=== PATIENT | male | born 1965 | race Hispanic/Latino ===

== ENCOUNTER 2016-10-12 12:18 | Emergency (ER) | payer MEDICAID, OTHER ==
[2016-10-12 12:22] VITALS: RESP 18
[2016-10-12 12:28] VITALS: BMI 22.6
[2016-10-12 12:34] VITALS: O2SAT 97
[2016-10-12] MEDS ORDERED: Sodium Chloride 0.9% 1,000 ML IV ONE (13:22)
--- NOTE | 2016-10-12 13:26 | C.PDOC ---
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 Patient has multiple prior visits to ED for intoxication and states he only drinks "1 beer per day". Obviously intoxicated making interrogatory difficult- aunt @ bedside helping. Patient denies fever, chills, COLLINS, numbness or any other complaints at this time. Time Seen by Provider: 10/12/16 13:16 Chief Complaint (Nursing): Rib Injury History Per: Patient History/Exam Limitations: no limitations Onset/Duration Of Symptoms: Days Current Symptoms Are (Timing): Still Present Modifying Factor(s): Alcohol Past Medical History Reviewed: Historical Data, Nursing Documentation, Vital Signs Vital Signs: Last Vital Signs Temp 97.5 F L 10/12/16 15:02 Pulse 71 10/12/16 15:02 Resp 18 10/12/16 15:02 BP 129/79 10/12/16 15:02 Pulse Ox 97 10/12/16 15:02 - Medical History PMH: Cardia Arrhythmia ("skipped beats"), Seizures Family History: States: No Known Family Hx - Social History Hx Tobacco Use: Yes Hx Alcohol Use: Yes Hx Substance Use: No - Immunization History Hx Tetanus Toxoid Vaccination: No Hx Influenza Vaccination: No Hx Pneumococcal Vaccination: No Review Of Systems Except As Marked, All Systems Reviewed And Found Negative. Constitutional: Negative for: Fever, Chills Cardiovascular: Negative for: Chest Pain Gastrointestinal: Negative for: Nausea, Vomiting, Diarrhea Musculoskeletal: Positive for: Other (Rib pain) Skin: Negative for: Rash Neurological: Negative for: Weakness, Numbness Physical Exam - Physical Exam Appears: Other (Intoxicated) Skin: Warm Head: Atraumatic, Normacephalic Oral Mucosa: Moist Neck: Normal ROM Extremity: Normal ROM, Other (Mild Erythema to lateral ribs, t5-t8 20 by 20 cm ) Neurological/Psych: Oriented x3, Normal Speech, Normal Motor, Normal Sensation, Normal Reflexes ED Course And Treatment - Laboratory Results Result Diagrams: 10/12/16 14:24 10/12/16 13:22 Lab Interpretation: Abnormal (etoh 480 H) ECG: Interpreted By Me ECG Rhythm: Sinus Rhythm ECG Interpretation: Normal Rate From EC O2 Sat by Pulse Oximetry: 97 (RA) Pulse Ox Interpretation: Normal - Other Rad CT Chest X-Ray: Read By Radiologist (no rib fx, no xyphoid injury, no lung abn) Reevaluation Time: 14:30 Reassessment Condition: Improved Medical Decision Making Medical Decision Making: R rib superficial contusion, persistent etoh abuse etoh 480H pt declines etoh detox (non available today anyway) refer to outpatient f/u aunt @ bedside to assure safe travels home. Disposition Doctor Will See Patient In The: Office Counseled Patient/Family Regarding: Studies Performed, Diagnosis - Disposition Referrals: Alcoholics Anonymous [Outside] [facility] [Outside] [facility] [Outside] Disposition: HOME/ ROUTINE Disposition Time: 14:50 Condition: GOOD Additional Instructions: ice packs for R ribs 1/2 hour per hour. motrin 400-600 mg every 6 hours as needed Alcoholism: Seek AA Seek outpatient counseling through our [facility] Instructions: Costochondritis (ED), Abuse of Alcohol (ED), Rib Contusion (ED) - Clinical Impression Clinical Impression: Contusion of rib on right side, Alcohol abuse - Scribe Statement The provider has reviewed the documentation as recorded by the Scribalan Gooden All medical record entries made by the Scribe were at my direction and personally dictated by me. I have reviewed the chart and agree that the record accurately reflects my personal performance of the history, physical exam, medical decision making, and the department course for this patient. I have also personally directed, reviewed, and agree with the discharge instructions and disposition.
[2016-10-12 14:13] LABS: CHLORIDE 97 mmol/L (98-107)
[2016-10-12] MEDS ORDERED: Sodium Chloride 0.9% 1,000 ML ONE (14:13)
[2016-10-12 14:14] LABS: POTASSIUM 4.4 mmol/L (3.6-5.2); SODIUM 135 mmol/L (132-148)
[2016-10-12 14:16] LABS: ALB/GLOB RATIO 1.3 (1.0-2.1); ALKALINE PHOSPHATASE 95 U/L (38-126); ALT/SGPT 35 U/L (21-72); AST/SGOT 50 U/L (17-59); BILIRUBIN,TOTAL 0.6 mg/dL (0.2-1.3); BLOOD UREA NITROGEN 3 mg/dL (9-20); CARBON DIOXIDE 23 mmol/L (22-30); GFR AFRICAN-AMERICAN > 60; TOTAL PROTEIN 7.8 g/dL (6.3-8.3)
[2016-10-12 14:17] LABS: CALCIUM 7.8 mg/dl (8.6-10.4); GLUCOSE,RANDOM 87 mg/dL (75-110)
[2016-10-12 14:20] LABS: BASO # 0.1 K/uL (0.0-0.2); BASO % 1.2 % (0.0-2.0); EOS % 0.9 % (0.0-4.0); HEMATOCRIT 41.4 % (35.0-51.0); LYMPH # 1.8 K/uL (1.0-4.3); MEAN CELL VOLUME 96.1 fL (80.0-94.0); MEAN CORPUSCULAR HEMOGLOBIN 32.8 pg (27.0-31.0); MEAN CORPUSCULAR HGB CONC 34.2 g/dL (33.0-37.0); MEAN PLATELET VOLUME 6.6 fL (7.2-11.7); MONO # 0.4 K/uL (0.0-0.8); MONO % 6.9 % (0.0-10.0); NRBC % 0.1 % (0.0-2.0); RED CELL DISTRIBUTION WIDTH 13.1 % (11.5-14.5); WHITE BLOOD COUNT 5.2 K/uL (4.8-10.8)
[2016-10-12 14:29] LABS: ALCOHOL SERUM 480 mg/dl (0-10)
--- NOTE | 2016-10-12 14:33 | CT ---
PROCEDURE: CT Chest without contrast HISTORY: intox, R rib contusion, hemoptysis, intoxicated COMPARISON: None. TECHNIQUE: Contiguous axial images were obtained through the chest without intravenous contrast enhancement. Sagittal and coronal reconstructions were performed. Radiation dose (DLP): 219.83 mGy-cm. This CT exam was performed using one or more of the following dose reduction techniques: Automated exposure control, adjustment of the mA and/or kV according to patient size, and/or use of iterative reconstruction technique. FINDINGS: LUNGS: Clear lungs. Visualized airway clear. MEDIASTINUM: Unremarkable thoracic aorta. No aneurysm. Normal heart size. Coronary arterial calcification noted. Main pulmonary artery unremarkable. No vascular congestion. No lymphadenopathy. PLEURA: No pleural fluid. No pneumothorax. BONES: No rib fracture. Sternum is unremarkable. The right shoulder is only partially included in this examination. There is a large ossific density separate from the humeral head, post true lateral to the glenoid, of uncertain significance. No evidence of acute fracture. Possible old trauma. UPPER ABDOMEN: Grossly unremarkable. OTHER FINDINGS: None. IMPRESSION: No pulmonary parenchymal abnormality or pleural effusion. No evidence of right rib fracture or sternal/ xiphoid process abnormality. Note made of large os ossific density post oral lateral to the glenoid, of uncertain significance. Consider old trauma. No evidence of acute fracture.
[2016-10-12 15:02] VITALS: BP 129/79; PULSE 71; TEMP 97.5
--- NOTE | 2016-10-13 11:17 | CARD ---
APPROVED REPORT EKG Measurement Heart [id number] CO [id number] <Conclusion> Normal sinus rhythm Anteroseptal infarct, age undetermined Abnormal ECG
== END 2016-10-12 15:00 | disposition home or self-care (01) ==
LOC: C.ER 12:18
DX: S20.211A Contusion of right front wall of thorax, initial encounter (principal); X58.XXXA Exposure to other specified factors, initial encounter; Y93.89 Activity, other specified; Y92.9 Unspecified place or not applicable; F10.120 Alcohol abuse with intoxication, uncomplicated; Y90.8 Blood alcohol level of 240 mg/100 ml or more
CPT/HCPCS: 71250; 80053; 82948; 83880; 84484; 85025; 93005; 96361; 96374; 99285; G0480; J1885; J7040

== ENCOUNTER 2016-10-19 11:58 | Emergency (ER) | payer MEDICAID, OTHER ==
[2016-10-19 11:59] VITALS: BMI 22.6
[2016-10-19 12:05] VITALS: BP 145/88; PULSE 98; TEMP 98.5; O2SAT 100
--- NOTE | 2016-10-19 12:11 | C.PDOC ---
History Of Present Illness 51 y/o male presents to the emergency department for medical clearance for work. patient was seen on 10/12 for flank pain. Pain free now. No active complaints. Time Seen by Provider: 10/19/16 12:09 Chief Complaint (Nursing): Medical Clearance Onset/Duration Of Symptoms: Gradual Current Symptoms Are (Timing): Gone Pain Scale Rating Of: 4 Past Medical History Vital Signs: Last Vital Signs Temp 98.5 F 10/19/16 12:03 Pulse 98 H 10/19/16 12:03 Resp 18 10/19/16 12:17 BP 145/88 10/19/16 12:03 Pulse Ox 100 10/19/16 12:11 - Medical History PMH: Cardia Arrhythmia ("skipped beats"), Seizures Family History: States: Unknown Family Hx - Social History Hx Tobacco Use: Yes Hx Alcohol Use: Yes Hx Substance Use: No - Immunization History Hx Tetanus Toxoid Vaccination: Yes Hx Influenza Vaccination: Yes Hx Pneumococcal Vaccination: Yes Review Of Systems Constitutional: Negative for: Fever, Chills Cardiovascular: Negative for: Chest Pain, Palpitations Respiratory: Negative for: Cough, Shortness of Breath Gastrointestinal: Negative for: Nausea, Vomiting, Abdominal Pain Physical Exam - Physical Exam Appears: Non-toxic, No Acute Distress Skin: Normal Color Head: Atraumatic Respiratory: Normal Breath Sounds Gastrointestinal/Abdominal: Normal Exam, Soft, No Tenderness Back: Normal Inspection, No CVA Tenderness ED Course And Treatment O2 Sat by Pulse Oximetry: 100 Disposition - Disposition Referrals: [facility] [Outside] Disposition: HOME/ ROUTINE Disposition Time: 12:09 Condition: STABLE Additional Instructions: Follow up in the clinic. Be advised the Emergency department is not meant for obtaining work notes, nor medical clearance. Forms: General Discharge Instructions, Work Excuse - POA Present On Arrival: None - Clinical Impression Clinical Impression: Encounter for medical assessment
[2016-10-19 12:17] VITALS: RESP 18
== END 2016-10-19 12:17 | disposition home or self-care (01) ==
LOC: C.ER 11:58
DX: Z00.00 Encounter for general adult medical examination without abnormal findings (principal)

== ENCOUNTER → 2017-09-08 13:15 | Emergency (ER) | payer MEDICAID, OTHER ==
[2017-09-08 13:15] VITALS: BMI 22.6
== END | disposition left against medical advice (07) ==
LOC: C.ER 13:15
DX: Z02.89 Encounter for other administrative examinations (principal); F19.10 Other psychoactive substance abuse, uncomplicated